=== PATIENT | female | born 2000 | race Caucasian/White ===

== ENCOUNTER 2023-09-07 18:29 | Observation (INO) ==
[2023-09-07] MEDS ORDERED: 0.9 % SODIUM CHLORIDE 1,000 ML IV ONE (18:46)
[2023-09-07] MEDS ORDERED: KETOROLAC 15 MG/ML VIAL IV ONE (18:56)
[2023-09-07 19:22] LABS: POC Calcium, Ionized 1.17 (1.16-1.32); POC Creatinine 0.4 (0.6-1.2); POC Potassium 3.3 (3.3-5.1)
[2023-09-07 19:49] LABS: Basophils # (Auto) 0.05 K/mcL (0.00-0.30); Basophils % (Auto) 0.6 % (0.0-2.0); Eosinophils % (Auto) 5.7 % (0.0-7.0); Hematocrit 42.9 % (34.1-44.9); Hemoglobin 14.5 g/dL (11.2-15.7); Lymphocytes # (Auto) 2.94 K/mcL (1.50-4.80); Lymphocytes % (Auto) 33.4 % (15.5-49.0); Mean Cell Volume 94.1 fL (80.0-100.0); Mean Corpuscular HGB Conc 33.8 g/dL (31.0-36.0); Mean Platelet Volume 9.3 fL (8.8-12.5); Monocytes # (Auto) 0.47 K/mcL (0.10-0.90); Monocytes % (Auto) 5.3 % (1.0-12.0); Neutrophils % (Auto) 54.8 % (38.0-78.0); Platelet Count 278 K/mcL (140-440); RBC 4.56 M/mcL (3.59-5.38); Red Cell Distribution Width 12.1 % (11.5-14.5); WBC 8.8 K/mcL (4.5-11.0)
[2023-09-07 20:17] LABS: ALT/SGPT 8 U/L (<40); AST/SGOT 11 U/L (<32); Albumin 4.7 gm/dL (3.2-5.2); Alkaline Phosphatase 69 U/L (39-117); Bilirubin,Direct < 0.2 mg/dL (0-0.3); Bilirubin,Total 0.5 mg/dL (0.1-1.0); Globulin 2.4 gm/dL (2.2-3.7)
[2023-09-07] MEDS ORDERED: PIPERACILLIN SODIUM/TAZOBACTAM 3.375 GM in DEXTROSE 5% IN WATER 50 ML IV ONE (20:34)
[2023-09-07] MEDS ORDERED: ONDANSETRON 4 MG/2 ML VIAL IV ONE (20:40)
[2023-09-07] MEDS ORDERED: HYDROmorphone 1 MG/ML SYRINGE IV ONE (20:40)
[2023-09-07] MEDS ORDERED: ONDANSETRON 4 MG/2 ML VIAL IV PRN (20:44)
[2023-09-07] MEDS ORDERED: GABAPENTIN 300 MG CAPSULE PO SCH (21:00)
[2023-09-07] MEDS ORDERED: PROMETHAZINE 25 MG/ML VIAL IV PRN (21:04)
[2023-09-07] MEDS ORDERED: 0.9 % SODIUM CHLORIDE 1,000 ML IV SCH (21:15)
[2023-09-07 22:01] LABS: Prothrombin Time 13.6 sec (11.9-14.5)
[2023-09-07] MEDS ORDERED: IOPAMIDOL 100 ML BOTTLE IV ONE (22:02)
[2023-09-07] MEDS: HYDROmorphone 0.5 MG/0.5 ML SYRINGE IV PRN (22:28)
[2023-09-07] MEDS: PIPERACILLIN SODIUM/TAZOBACTAM 3.375 GM in DEXTROSE 5% IN WATER 100 ML IV SCH (22:54)
[2023-09-07] MEDS: 0.9 % SODIUM CHLORIDE 1,000 ML IV SCH (23:23)
[2023-09-08] MEDS: HYDROcodone/APAP 5/325MG TABLET PO PRN ×5 (00:35→20:18)
[2023-09-08] MEDS: HYDROmorphone 0.5 MG/0.5 ML SYRINGE IV PRN ×2 (03:04→07:16)
[2023-09-08] MEDS: PIPERACILLIN SODIUM/TAZOBACTAM 3.375 GM in DEXTROSE 5% IN WATER 100 ML IV SCH ×3 (04:50→20:25)
[2023-09-08] MEDS: 0.9 % SODIUM CHLORIDE 1,000 ML IV SCH ×3 (04:51→19:49)
[2023-09-08 07:07] LABS: Basophils # (Auto) 0.04 K/mcL (0.00-0.30); Basophils % (Auto) 0.6 % (0.0-2.0); Eosinophils # (Auto) 0.43 K/mcL (0.00-0.70); Eosinophils % (Auto) 6.3 % (0.0-7.0); Hematocrit 37.2 % (34.1-44.9); Hemoglobin 12.4 g/dL (11.2-15.7); Lymphocytes # (Auto) 3.15 K/mcL (1.50-4.80); Lymphocytes % (Auto) 46.3 % (15.5-49.0); Mean Cell Volume 96.1 fL (80.0-100.0); Mean Corpuscular HGB Conc 33.3 g/dL (31.0-36.0); Mean Platelet Volume 9.1 fL (8.8-12.5); Monocytes # (Auto) 0.46 K/mcL (0.10-0.90); Monocytes % (Auto) 6.8 % (1.0-12.0); Neutrophils % (Auto) 39.9 % (38.0-78.0); Platelet Count 213 K/mcL (140-440); RBC 3.87 M/mcL (3.59-5.38); Red Cell Distribution Width 12.1 % (11.5-14.5); WBC 6.8 K/mcL (4.5-11.0)
[2023-09-08 07:24] LABS: ALT/SGPT 6 U/L (<40); AST/SGOT 8 U/L (<32); Albumin 3.6 gm/dL (3.2-5.2); Albumin/Globulin Ratio 2.3 (1.0-2.3); Alkaline Phosphatase 48 U/L (39-117); Bilirubin,Direct < 0.2 mg/dL (0-0.3); Bilirubin,Total 0.6 mg/dL (0.1-1.0); Blood Urea Nitrogen 8 mg/dL (6-20); Carbon Dioxide 21 mmol/L (22-30); Chloride 108 mmol/L (96-108); Globulin 1.6 gm/dL (2.2-3.7); Glomerular Filtration Rate 134; Glucose 82 mg/dL (70-105); Lactate Dehydrogenase 114 U/L (135-225); Phosphorous 3.3 mg/dL (2.5-4.5); Triglycerides 64 mg/dL (<150); Uric Acid 2.9 mg/dL (2.5-8.0)
[2023-09-08] MEDS: PANTOPRAZOLE 40 MG VIAL IV SCH ×2 (08:02→16:13)
[2023-09-08] MEDS ORDERED: IPRATROPIUM/ALBUTEROL 3 ML AMPUL.NEB NEB PRN ×2 (08:46→13:35)
[2023-09-08] MEDS ORDERED: SCOPOLAMINE 1 PATCH PATCH TOPICAL PRN (08:46)
[2023-09-08] MEDS: GABAPENTIN 300 MG CAPSULE PO SCH ×3 (08:56→20:18)
[2023-09-08] MEDS: HYDROmorphone 1 MG/ML SYRINGE IV PRN ×6 (08:56→23:24)
[2023-09-08] MEDS ORDERED: fentaNYL 100 MCG/2 ML VIAL IV ONE (12:24)
[2023-09-08] MEDS ORDERED: PROPOFOL 200 MG/20 ML VIAL IV ONE (12:24)
[2023-09-08] MEDS ORDERED: DEXAMETHASONE 10 MG/ML VIAL ONE (12:25)
[2023-09-08] MEDS ORDERED: ROCURONIUM 10 MG/ML ML IV ONE (12:25)
[2023-09-08] MEDS ORDERED: ONDANSETRON 4 MG/2 ML VIAL ONE (12:25)
[2023-09-08] MEDS ORDERED: HYDROmorphone 0.5 MG/0.5 ML SYRINGE IV PRN (13:35)
[2023-09-08] MEDS ORDERED: ONDANSETRON 4 MG/2 ML VIAL IV PRN (13:35)
[2023-09-08] MEDS ORDERED: PROMETHAZINE 25 MG/ML VIAL IV PRN (13:35)
[2023-09-08] MEDS ORDERED: NALOXONE HCL 0.4 MG/ML VIAL IV PRN (13:35)
[2023-09-08] MEDS ORDERED: KETOROLAC 30 MG/ML VIAL ONE (13:36)
[2023-09-08] MEDS ORDERED: SUGAMMADEX SODIUM 200 MG/2 ML VIAL IV ONE (13:36)
[2023-09-08] MEDS: fentaNYL 100 MCG/2 ML VIAL IV PRN ×2 (14:00→14:06)
[2023-09-09] MEDS: HYDROcodone/APAP 5/325MG TABLET PO PRN ×3 (00:22→13:14)
[2023-09-09] MEDS: HYDROmorphone 1 MG/ML SYRINGE IV PRN ×3 (03:15→11:26)
[2023-09-09] MEDS: PIPERACILLIN SODIUM/TAZOBACTAM 3.375 GM in DEXTROSE 5% IN WATER 100 ML IV SCH ×2 (05:17→13:12)
[2023-09-09] MEDS: 0.9 % SODIUM CHLORIDE 1,000 ML IV SCH (05:18)
[2023-09-09] MEDS ORDERED: LORazepam 2 MG/ML VIAL ONE (05:56)
[2023-09-09] MEDS ORDERED: KETOROLAC 30 MG/ML VIAL IV ONE ×2 (06:00→09:15)
[2023-09-09] MEDS ORDERED: LORazepam 2 MG/ML VIAL IV ONE ×2 (06:00→13:18)
[2023-09-09 06:38] LABS: Basophils # (Auto) 0.02 K/mcL (0.00-0.30); Basophils % (Auto) 0.2 % (0.0-2.0); Eosinophils # (Auto) 0 K/mcL (0.00-0.70); Eosinophils % (Auto) 0 % (0.0-7.0); Hematocrit 38.7 % (34.1-44.9); Hemoglobin 12.6 g/dL (11.2-15.7); Lymphocytes # (Auto) 1.32 K/mcL (1.50-4.80); Lymphocytes % (Auto) 12.1 % (15.5-49.0); Mean Cell Volume 98.7 fL (80.0-100.0); Mean Corpuscular HGB Conc 32.6 g/dL (31.0-36.0); Mean Platelet Volume 8.9 fL (8.8-12.5); Monocytes # (Auto) 0.68 K/mcL (0.10-0.90); Monocytes % (Auto) 6.2 % (1.0-12.0); Neutrophils % (Auto) 81.1 % (38.0-78.0); Platelet Count 231 K/mcL (140-440); RBC 3.92 M/mcL (3.59-5.38); Red Cell Distribution Width 11.9 % (11.5-14.5); WBC 10.9 K/mcL (4.5-11.0)
[2023-09-09 08:33] LABS: Basophils # (Auto) 0.02 K/mcL (0.00-0.30); Basophils % (Auto) 0.2 % (0.0-2.0); Eosinophils # (Auto) 0.01 K/mcL (0.00-0.70); Eosinophils % (Auto) 0.1 % (0.0-7.0); Hemoglobin 11.9 g/dL (11.2-15.7); Lymphocytes # (Auto) 1.53 K/mcL (1.50-4.80); Lymphocytes % (Auto) 15.3 % (15.5-49.0); Mean Cell Volume 99.7 fL (80.0-100.0); Mean Corpuscular HGB Conc 32.2 g/dL (31.0-36.0); Mean Platelet Volume 9.2 fL (8.8-12.5); Monocytes # (Auto) 0.73 K/mcL (0.10-0.90); Monocytes % (Auto) 7.3 % (1.0-12.0); Platelet Count 214 K/mcL (140-440); RBC 3.71 M/mcL (3.59-5.38); Red Cell Distribution Width 11.9 % (11.5-14.5)
[2023-09-09 08:59] LABS: INR 1.2 (0.9-1.1); Prothrombin Time 15.3 sec (11.9-14.5)
[2023-09-09 09:03] LABS: Blood Urea Nitrogen 4 mg/dL (6-20); Calcium 8.6 mg/dL (8.6-10.4); Carbon Dioxide 22 mmol/L (22-30); Chloride 105 mmol/L (96-108); Glomerular Filtration Rate 134; Glucose 102 mg/dL (70-105)
[2023-09-09] MEDS: PANTOPRAZOLE 40 MG VIAL IV SCH (09:18)
[2023-09-09] MEDS: GABAPENTIN 300 MG CAPSULE PO SCH (09:18)
[2023-09-09 09:33] LABS: Partial Thromboplastin Time 29.8 sec (20.0-37.0)
== END 2023-09-09 15:04 | disposition short-term general hospital (02) ==
LOC: ED 18:29 → MEDSUR 18:29
PROVIDERS: ADMIT Family Medicine Adult Medicine; ATTEND Family Medicine Adult Medicine